=== PATIENT | female | born 1960 | race Caucasian/White ===

== ENCOUNTER → 2017-08-23 | Outpatient (CLI) | payer OTHER ==
[2017-08-23 09:38] LABS: ALT 42 U/L (9-52); AST 30 U/L (14-36); Alkaline Phosphatase 73 U/L (38-126); Anion Gap 10 mmol/L; Blood Urea Nitrogen 14 mg/dL (7-17); Calcium 9.9 mg/dL (8.4-10.2); Carbon Dioxide 28 mmol/L (22-30); Chloride 105 mmol/L (98-107); Cholesterol 213 mg/dL (<200); Glucose 100 mg/dL (74-99); HDL Cholesterol 60 mg/dL (40-60); Non-African American GFR(MDRD) >60 (>60 ml/min/1.73 sqM); Potassium 4.8 mmol/L (3.5-5.1); Sodium 143 mmol/L (137-145); Total Bilirubin 0.6 mg/dL (0.2-1.3); Total Protein 7.6 g/dL (6.3-8.2)
[2017-08-23 09:45] LABS: Basophils # (A) 0.1 k/uL (0-0.2); Basophils % (A) 2 %; CH 30.5; Eosinophils # (A) 0.5 k/uL (0-0.7); Eosinophils % (A) 9 %; HCT 44.1 % (34.0-46.0); HDW 2.44; HGB 14.4 gm/dL (11.4-16.0); Luc # (Auto) 0.18; Luc % (Auto) 3; Lymphocytes # (A) 1.7 k/uL (1.0-4.8); Lymphocytes % (A) 30 %; MCH 30.2 pg (25.0-35.0); MCHC 32.5 g/dL (31.0-37.0); MCV 92.9 fL (80.0-100.0); Mean Platelet Volume 6.6; Monocytes # (A) 0.4 k/uL (0-1.0); Monocytes % (A) 7 %; Neutrophils # (A) 2.8 k/uL (1.3-7.7); Neutrophils % (A) 50 %; RBC 4.75 m/uL (3.80-5.40); RDW 12.4 % (11.5-15.5); WBC 5.6 k/uL (3.8-10.6); WBC (Perox) 5.69
== END | disposition home or self-care (01) ==
LOC: LABWHC1 08:47
PROVIDERS: ATTEND Internal Medicine
DX: I10 Essential (primary) hypertension (principal); R53.81 Other malaise
CPT/HCPCS: 36415; 80053; 80061; 82306; 84439; 84443; 85025

== ENCOUNTER → 2018-11-22 | Outpatient (CLI) | payer BC ==
--- NOTE | 2018-11-23 08:47 | BD ---
EXAMINATION TYPE: Axial Bone Density DATE OF EXAM: 11/22/2018 COMPARISON: NONE CLINICAL HISTORY: 58 YR OLD FEMALE....ICD-10 CODE: Z13.820 OSTEOPOROSIS SCREENING Height: 60 Weight: 194 FRAX RISK QUESTIONS: Current Tobacco Use: YES, SOCIAL RISK FACTORS HISTORY OF: Family History of Osteoporosis: YES, HER MOTHER...NO HIP FX Postmenopausal woman: YES, AT 46 YRS OLD Lost more than 2 inches in height since high school: NOT QUITE MEDICATIONS: Additional Medications: LISINOPRIL, NSAIDS, CALCIUM AND VIT D Additional History: NOTHING ADDITIONAL TO NOTE HERE EXAM MEASUREMENTS: Bone mineral densitometry was performed using the [employer]. Bone mineral density as measured about the Lumbar spine is: ----- L1-L4(G/cm2): 1.275 T Score Values are as follows: ----- L1: 0.0 ----- L2: 0.1 ----- L3: 0.7 ----- L4: 2.3 ----- L1-L4: 0.1 Bone mineral density FIRST DEXA SCAN.....BASELINE STUDY Bone mineral density about the R hip (g/cm2): 1.028 Bone mineral density about the L hip (g/cm2): 0.965 T Score values are as follows: -----R Neck: -1.0 -----L Neck: -1.5 -----R Total: 0.2 -----L Total: -0.3 Bone mineral density BASELINE STUDY FRAX%s: THERE IS A 7.0% CHANCE FOR A MAJOR OSTEOPOROTIC FX AND A 0.9% FOR HIP.....PROBABILITY OF F X IN 10 YRS TIME IMPRESSION: Osteopenia (T Score between -2.5 and -1) with regards to the left femoral neck. There is slightly increased risk of fracture and the patient may be considered for treatment. Re-Screen 2-5 years. NOTE: T-SCORE=SD OF THE YOUNG ADULT MEAN.
--- NOTE | 2018-11-23 09:16 | MM ---
Reason for exam: screening (asymptomatic). Last mammogram was performed 2 years and 9 months ago. History: Patient is postmenopausal. Family history of breast cancer in aunt. Benign stereotactic core biopsy of the left breast, January 21, 2002. Core biopsy of the left breast. Physical Findings: A clinical breast exam by your physician is recommended on an annual basis and results should be correlated with mammographic findings. MG 3D Screening Mammo W/Cad Bilateral CC and MLO view(s) were taken. Prior study comparison: February 05, 2016, bilateral MG screening mammo w CAD. February 05, 2014, [facility] DIGITAL RIGHT MAMMOGRAM w/CAD. There are scattered fibroglandular densities. Benign right calcifications. No suspicious abnormality. Left biopsy marker noted. ASSESSMENT: Benign, BI-RAD 2 RECOMMENDATION: Routine screening mammogram of both breasts in 1 year.
== END | disposition home or self-care (01) ==
LOC: RADMAMWWP 15:27
PROVIDERS: ATTEND Family Medicine
DX: Z12.31 Encounter for screening mammogram for malignant neoplasm of breast (principal); M85.852 Other specified disorders of bone density and structure, left thigh; Z13.820 Encounter for screening for osteoporosis
CPT/HCPCS: 77063; 77067; 77080

== ENCOUNTER → 2020-03-31 | Outpatient (CLI) | payer BC ==
--- NOTE | 2020-04-01 04:32 | CT ---
EXAMINATION TYPE: CT sinus wo con DATE OF EXAM: 03/31/2020 COMPARISON: None HISTORY: 60-year-old female chronic sinus infections CT DLP: 536 mGycm Automated exposure control for dose reduction was used. TECHNIQUE: Noncontrast axial views of the paranasal sinuses were obtained. Coronal reconstructions pe rformed. FINDINGS: PARANASAL SINUSES: Near complete opacification of the right frontal sinus with trace layering fluid within. Scattered trace mucosal thickening left maxillary sinus and right sphenoid sinus. Moderate mucosal thickening bilateral ethmoid air cells, regarding the left and moderate mucosal thic kening right frontal sinus. Reactive ellie- osteogenesis is not seen. There is no destruction of the osseous orozco of the paranasal sinuses. THE NASAL CAVITY: There is a calcification which extends to encompass the right maxillary antrum and osteomeatal comple x. Left osteomeatal complex is patent. No significant nasal septal deviation. Majority of the mastoid air cells and middle ear cavities are excluded from view. Visualized orbits a nd globes show no gross abnormality. Reformatted images confirm above findings. IMPRESSION: Asymmetric right-sided paranasal sinus disease with near complete opacification of the right maxillar y sinus and tiny air-fluid level. Correlate for acute on chronic sinusitis. Consider partial obstruct ion of the right osteomeatal complex.
== END | disposition home or self-care (01) ==
LOC: RADCTMAIN 17:16
PROVIDERS: ATTEND Otolaryngology
DX: J34.89 Other specified disorders of nose and nasal sinuses (principal); J32.9 Chronic sinusitis, unspecified
CPT/HCPCS: 70486

== ENCOUNTER 2020-04-07 15:25 | Day surgery (SDC) | payer BC ==
[~2020-04-07 15:25] MED LIST: OXYMETAZOLINE 0.05% NASL SPRAY 1 SPRAY BOTTLE ONE
[2020-04-07] MEDS ORDERED: LACTATED RINGERS 1,000 ML IV SCH (15:30)
[2020-04-07] MEDS ORDERED: fentaNYL (PF) 50 MCG/ML 2 ML AMP IVP PRN (15:30)
[2020-04-07] MEDS: OXYMETAZOLINE 0.05% NASL SPRAY 1 SPRAY BOTTLE NASAL ONE ×5 (15:35→15:55)
[2020-04-07] MEDS ORDERED: LACTATED RINGERS 1,000 ML IV ONE ×2 (15:39→18:14)
[2020-04-07] MEDS ORDERED: MIDAZOLAM 2 MG/2 ML VIAL IVP ONE (16:15)
[2020-04-07 16:18] LABS: Basophils # (A) 0.1 k/uL (0-0.2); Basophils % (A) 1 %; Eosinophils # (A) 0.3 k/uL (0-0.7); Eosinophils % (A) 4 %; HCT 44.3 % (34.0-46.0); HGB 14.7 gm/dL (11.4-16.0); Lymphocytes # (A) 2.4 k/uL (1.0-4.8); Lymphocytes % (A) 33 %; MCH 29.7 pg (25.0-35.0); MCHC 33.1 g/dL (31.0-37.0); MCV 89.5 fL (80.0-100.0); Monocytes # (A) 0.4 k/uL (0-1.0); Monocytes % (A) 5 %; Neutrophils % (A) 55 %; Platelet Count 436 k/uL (150-450); RBC 4.95 m/uL (3.80-5.40); RDW 12.7 % (11.5-15.5); WBC 7.3 k/uL (3.8-10.6)
[2020-04-07] MEDS ORDERED: GLYCOPYRROLATE 0.2 MG/ML 2 ML VIAL ONE (17:23)
[2020-04-07] MEDS ORDERED: MIDAZOLAM 2 MG/2 ML VIAL ONE (17:23)
[2020-04-07] MEDS ORDERED: fentaNYL (PF) 50 MCG/ML 2 ML AMP ONE (17:23)
[2020-04-07] MEDS ORDERED: ROCURONIUM BROMIDE 10 MG/ML 5 ML VIAL IV ONE (17:23)
[2020-04-07] MEDS ORDERED: PROPOFOL 10 MG/ML 20 ML VIAL IV ONE (17:23)
[2020-04-07] MEDS ORDERED: NEOSTIGMINE 1 MG/ML 10 ML VIAL ONE (17:23)
[2020-04-07] MEDS ORDERED: BACITRACIN 500 UNIT/GM OINT 28.4 GM TUBE TOPICAL ONE (18:10)
[2020-04-07] MEDS ORDERED: LIDOCAINE 1%-EPI 1:100,000 20 ML VIAL SQ ONE (18:11)
[2020-04-07] MEDS ORDERED: FLUORESCEIN STRIPS 1 MG STRIP MISCELLANE ONE (18:12)
[2020-04-07] MEDS ORDERED: EPINEPHrine 1 MG/ML (MDV) 30 ML VIAL TOPICAL ONE (18:12)
[2020-04-07] MEDS ORDERED: BUPIVACAIN-EPI 0.25%-1:200,000 30 ML VIAL SQ ONE (18:13)
[2020-04-07] MEDS: fentaNYL (PF) 50 MCG/ML 2 ML AMP IV PRN ×2 (19:33→19:45)
--- NOTE | 2020-04-07 19:52 | P.OP ---
Date of Procedure: 04/07/20 Preoperative Diagnosis: Chronic pansinusitis with bony erosion and polyposis Deviated nasal septum Hypertrophy of inferior nasal turbinates, bilateral Postoperative Diagnosis: Same Procedure(s) Performed: Septoplasty Bilateral functional endoscopic sinus surgery with removal of diseased tissue Bilateral submucosal resection of the inferior nasal turbinates with outfracturing compression Anesthesia: BRYAN Surgeon: Pramod Henderson Estimated Blood Loss (ml): 10 Pathology: other (Sinonasal) Condition: stable Disposition: PACU Indications for Procedure: This patient presented to the office today with a long-standing history of chronic sinus disease. Patient had a CAT scan performed demonstrating chronic pansinusitis but there is some polypoid-type material was some bony erosion of the right side sinuses. Patient had severe sinus disease on the right and more moderate disease on the left. Clearly there were some type of polypoid disease and a very severe process on the right side. ALLERGIC fungal sinusitis and her sinonasal polyposis with suspect. The patient complains of persistent facial pain especially on the right side and has failed medical therapy including many months and years of repetitive antibiotics cortisone nasal sprays decongestants and igcg-fgu-alaxnxt medications. She's lost her sense of smell. Her headaches continue quite bad. She is quite frustrated and with the evidence of her chronic pansinusitis and sinonasal polyposis and severe disease endoscopic sinus surgery, septoplasty and turbinate surgery was recommended. All risks, benefits, and alternative therapies were discussed. Risks of bleeding, infection, need for secondary surgery, etc. etc. were explained including risks of penetration into the orbit and skull base. Consent was obtained and all questions were answered. Operative Findings: Patient was found have massive sinonasal disease especially on the right side with polypoid-type material and erosion of the medial nasal wall with a deviated nasal septum to the left and some very impressively enlarged and obstructive inferior turbinates. Diseased tissue was found throughout all sinuses. The right side was particularly involved. Description of Procedure: This patient was taken to the operative room and placed in the supine position. A general inhalation anesthetic was administered to the patient by the department of anesthesia with a functioning IV line in place. The patient was monitored throughout the entire case by the department of anesthesia. The eyes were taped shut for protection. The patient was placed in a slight reverse Trendelenburg position. The patient had previously utilize Afrin nasal spray preoperatively. The nose was evaluated and the septum lateral nasal wall and inferior turbinates were injected with lidocaine 1% with epinephrine 1 100,000 bilaterally. Approximately 10 minutes were allowed wait for full vasoconstrictive effects to take place. At this point a caudal incision was made over the caudal portion of the left septum down to the mucoperichondrium. A mucoperichondrial flap was elevated on the left side and dissection was carried with use of tunnels posteriorly. We then made a crossover incision through the cartilage to the contralateral side and for the mucoperichondrial flap development was performed to the extent of visualization on the contralateral side. After the cartilage was freed with use of several crosshatching incisions and removal of some redundant strips of septal cartilage, the septum was straightened and placed back in the midline. The septum was sutured fixated to the ovarian groove. Excellent straightening occurred and the septum was visibly straight. Incision was closed with a 40 rapid Vicryl. We utilized a running nonlocking fashion for closure of the incision. A quilting stitch was used to reapproximate the septal flaps with use of a 40 rapid Vicryl. We then entered the nose with a 0 and 30 Dunn alec endoscope. Previous to this we did inject the lateral nasal wall and middle turbinate and uncinate process with lidocaine 1% with epinephrine 1 100,000. Approximately 10 minutes were allowed wait for full vasoconstrictive effects to take place. Intranasal polyps were noted. They were noted bilaterally. The intranasal polyps were removed with use of a microdebrider. With use of a microdebrider and a pediatric backbiter, we took down the uncinate process bilaterally. We then opened the maxillary sinuses bilaterally. We utilized a microdebrider for this and entered the maxillary sinuses and removed diseased tissue and polypoid tissue. This was done bilaterally. After the maxillary sinuses were opened and the diseased tissue and polyps were removed we entered the ethmoid bulla and with use of a microdebrider and up-biting José Miguel, we remove the anterior septations and remove diseased tissue from the anterior ethmoids with direct visualization. We then followed the fovea frontalis through the basal lamella and into the posterior ethmoid air cells and did a total ethmoidectomy with removal of polypoid material. Once the ethmoids cells were all taken down we then entered the sphenoid sinus medially and inferiorly underneath the inferior attachment of the superior turbinate. The sphenoid sinus was opened entered and diseased tissue and polyps were removed bilaterally. This was done with a microdebrider and Blakesley. We then entered the frontal sinuses with a giraffe and up-biting Blakesley entered on the agar nasi cells. We open the frontal sinuses and removed sinus tissue and polypoid tissue that was diseased. We explored the frontal sinuses bilaterally. To summarize all sinuses were open all sinuses were explored and we remove diseased tissue and polyps from the sphenoid maxillary and frontal sinuses. Polyps were removed from the nose. Ethmoid sinuses were opened totally. Nasal pore was inserted and minimal bleeding was encountered. We reinspected the skull base there is no signs of any orbital penetration or signs of any intracranial penetration. The sugical site was reinspected after the nasal pore was placed and no bleeding was seen. Attention was then paid to the inferior turbinates. The bilateral inferior turbinates were hypertrophic and obstructive. We entered the anterior portion of the inferior turbinates with use of a microdebrider. We remove bone and submucosal elements with use of a microdebrider bilaterally. The inferior turbinates underwent a submucosal resection with removal of submucosal tissue and bone. We obtained a much better and normal in size for breathing. The inferior turbinates were then outfractured and compressed with a Zymetises nasal elevator. Excellent airway was obtained and was symmetric bilaterally. No bleeding was encountered. Nasal packs were placed and she is to remove these tomorrow. They're Merocel sponge packs placed in a gloved finger with K-Y jelly insertion. Patient is to remove these packs herself tomorrow morning and I'll see her back in the office on Monday. She is to call me if any problems should arise. I left my cell phone number.
[2020-04-07] MEDS ORDERED: HYDROmorphone 1 MG/ML 1 ML SYRINGE IVP ONE (20:00)
[2020-04-07 22:09] VITALS: TEMP 97.6
[2020-04-07 23:40] VITALS: RESP 16
[2020-04-07 23:42] VITALS: BP 132/87; PULSE 98
[2020-04-08] MEDS ORDERED: ONDANSETRON 4 MG/2 ML VIAL IVP ONE (05:00)
[2020-04-08] MEDS ORDERED: FAMOTIDINE 20 MG/2 ML VIAL IV ONE (05:00)
[2020-04-08] MEDS ORDERED: DEXAMETHASONE SOD PHOSPHATE 4 MG/ML 1 ML VIAL IV ONE (05:00)
[2020-04-08] MEDS ORDERED: LEVOFLOXACIN 500 MG PO SCH (09:00)
[2020-04-08] MEDS ORDERED: LISINOPRIL HCTZ PO SCH (09:00)
== END 2020-04-07 23:20 | disposition home or self-care (01) ==
LOC: OR 15:25 → 5NMEDONC 18:56 → OR 23:20
PROVIDERS: ATTEND Otolaryngology
DX: J32.4 Chronic pansinusitis (principal); M85.88 Other specified disorders of bone density and structure, other site; J34.2 Deviated nasal septum; J34.3 Hypertrophy of nasal turbinates; Z91.048 Other nonmedicinal substance allergy status; R43.0 Anosmia; M19.90 Unspecified osteoarthritis, unspecified site; E78.00 Pure hypercholesterolemia, unspecified; I10 Essential (primary) hypertension; Z82.49 Family history of ischemic heart disease and other diseases of the circulatory system; Z82.61 Family history of arthritis; Z87.891 Personal history of nicotine dependence; Z79.890 Hormone replacement therapy; Z79.899 Other long term (current) drug therapy
CPT/HCPCS: 85025; 30520; 31267; 31259; 31253; 30140; J0171; J2250; J1100; J2710; J2405; J3010; J1170; J2704; 88300; 88305

== ENCOUNTER → 2022-10-25 | Outpatient (CLI) | payer BC ==
--- NOTE | 2022-10-25 18:24 | BD ---
EXAMINATION TYPE: Axial Bone Density DATE OF EXAM: 10/25/2022 COMPARISON: PATIENT HAD BONE DENSITY 11/22/2018, UNABLE TO COMPARE TO TODAY'S EXAM, NOT AVAILABLE ON [email or web address] CLINICAL HISTORY: 62 years year old Female. ICD-10 CODE: Z78.0 MENOPAUSE Height: 60" Weight: 186.5 FRAX RISK QUESTIONS: Alcohol (3 or more units per day): NO Family History (Parent hip fracture): NO Glucocorticoids (More than 3mos): NO (Ex: prednisone, prednisolone, methylprednisolone, dexamethasone, and hydrocortisone). History of Fracture in Adulthood: NO Secondary Osteoporosis: 1. Type 1 Diabetes: NO 2. Hyperthyroidism: NO 3. Menopause before 45: NO 4. Malnutrition: NO 5. Chronic liver disease: NO Rheumatoid Arthritis: NO Current Tobacco Use: NO RISK FACTORS HISTORY OF: Hip Fracture (Right/Left): NO Spine Fracture: NO History of Wrist Fracture: NO Surgery to Spine/Hip(right/left)/Wrist (right/left): NO Family History of Osteoporosis: YES, SISTER Active: SOMEWHAT Diet low in dairy products/other sources of calcium: NO Postmenopausal woman: YES Lost more than 2 inches in height since high school: NO Frequent falls: NO Poor Health: NO Hyperparathyroidism: NO Adrenal Insufficiency: NO MEDICATIONS: Prednisone or other steroids: NO Thyroid Medications: NO Osteoporosis Medications: NO Additional Medications: BLOOD PRESSURE MEDS, VITAMIN D, VITAMIN K, MULTIVITAMIN, TUMS ON OCCASION Additional History: NONE EXAM MEASUREMENTS: Bone mineral densitometry was performed using the [employer] System. Bone mineral density as measured about the Lumbar spine is: ----- L1-L4(G/cm2): 1.335 T Score Values are as follows: ----- L1: -0.1 ----- L2: 0.0 ----- L3: 1.9 ----- L4: 3.1 ----- L1-L4: 1.3 PATIENT HAD BONE DENSITY 11/22/2018, UNABLE TO COMPARE TO TODAY'S EXAM, NOT AVAILABLE ON SOFTWARE Bone mineral density about the R hip (g/cm2): 0.865 Bone mineral density about the L hip (g/cm2): 0.830 T Score values are as follows: -----R Neck: -1.2 -----L Neck: -1.5 -----R Total: 0.1 -----L Total: -0.2 PATIENT HAD BONE DENSITY 11/22/2018, UNABLE TO COMPARE TO TODAY'S EXAM, NOT AVAILABLE ON SOFTWARE FRAX%s: The graph provided illustrates a 7.9% chance for a major osteoporotic fx and a 0.7% chance fo r the hips probability for fx in 10 years time. IMPRESSION: Osteopenia (T Score between -2.5 and -1). There is slightly increased risk of fracture and the patient may be considered for treatment. Re-Screen 2-5 years. NOTE: T-SCORE=SD OF THE YOUNG ADULT MEAN.
--- NOTE | 2022-10-26 22:00 | MM ---
Reason for Exam: Screening (asymptomatic). Last mammogram was performed 3 year(s) and 11 month(s) ago. Patient History: Menarche at age 11. First Full-Term at age 21. Postmenopausal. Patient has history of breast feeding. Core Biopsy on the Left side. 01/21/2002, Benign Stereotactic Core Biopsy on the left side. Paternal aunt had breast cancer. Risk Values: Karime 5 year model risk: 2.3%. NCI Lifetime model risk: 10.0%. Prior Study Comparison: 02/05/2014 Right Diagnostic Mammogram, [facility]. 02/05/2016 Bilateral Screening Mammogram, [facility]. 11/22/2018 Bilateral Screening Mammogram, [facility]. Tissue Density: The breast tissue is almost entirely fat. Findings: Analyzed By CAD. There is no suspicious group of microcalcifications or new suspicious mass in either breast. Microclip left breast from prior biopsy. Overall Assessment: Negative, BI-RAD 1 Management: Screening Mammogram of both breasts in 1 year. 1. Patient should continue monthly self breast exams. 2. A clinical breast exam by your physician is recommended on an annual basis. 3. This exam should not preclude additional follow-up of suspicious palpable abnormalities. Electronically signed and approved by: Emanuel Lynne M.D. Radiologist
== END | disposition home or self-care (01) ==
LOC: RADMAMWWP 15:50
PROVIDERS: ATTEND Family Medicine
DX: Z12.31 Encounter for screening mammogram for malignant neoplasm of breast (principal); M85.89 Other specified disorders of bone density and structure, multiple sites; Z78.0 Asymptomatic menopausal state; Z80.3 Family history of malignant neoplasm of breast; Z98.890 Other specified postprocedural states
CPT/HCPCS: 77063; 77067; 77080

== ENCOUNTER → 2024-01-05 | Outpatient (CLI) | payer BC ==
--- NOTE | 2024-01-08 09:09 | MM ---
Reason for Exam: Screening (asymptomatic). Last mammogram was performed 1 year(s) and 2 month(s) ago. Patient History: Menarche at age 11. First Full-Term at age 21. Postmenopausal. Patient has history of breast feeding. Core Biopsy on the Left side. 01/21/2002, Benign Stereotactic Core Biopsy on the left side. Paternal aunt had breast cancer. Risk Values: Karime 5 year model risk: 2.3%. NCI Lifetime model risk: 9.7%. Prior Study Comparison: 02/05/2016 Bilateral Screening Mammogram, [facility]. 11/22/2018 Bilateral Screening Mammogram, [facility]. 10/25/2022 Bilateral MG 3D screening mammo w/cad, [facility]. Tissue Density: The breasts are almost entirely fatty. Findings: Analyzed By CAD. The pattern is symmetrical. Core markers within the left breast. Benign spherical calcifications are within right breast. Scattered benign punctate calcifications are present bilaterally. No suspicious groups of microcalcifications, spiculated or lobular masses, architectural distortion or other secondary signs of malignancy are mammographically apparent. Overall Assessment: Benign, BI-RAD 2 Management: Screening Mammogram of both breasts in 1 year. A negative mammogram report should not preclude additional follow up of suspicious palpable abnormalities. Patient should continue monthly self breast exam. A clinical breast exam by your physician is recommended on an annual basis and results should be correlated with mammographic findings. Electronically signed and approved by: Brannon Lira D.O. Radiologis
== END | disposition home or self-care (01) ==
LOC: RADMAMWWP 12:49
PROVIDERS: ATTEND Family Medicine
DX: Z12.31 Encounter for screening mammogram for malignant neoplasm of breast (principal); Z80.3 Family history of malignant neoplasm of breast; Z78.0 Asymptomatic menopausal state
CPT/HCPCS: 77063; 77067

== ENCOUNTER → 2024-01-05 | Outpatient (CLI) | payer BC ==
[2024-01-06 01:39] LABS: Basophils # (A) 0.04 X 10*3/uL (0.00-0.10); Basophils % (A) 0.8 %; Eosinophils # (A) 0.15 X 10*3/uL (0.04-0.35); Eosinophils % (A) 3.1 %; HGB 15.2 g/dL (12.0-15.0); Lymphocytes # (A) 2.02 X 10*3/uL (0.90-5.00); Lymphocytes % (A) 41.6 %; MCH 30.2 pg (27.0-32.0); MCV 91.5 FL (80.0-97.0); Mean Platelet Volume 9.7 FL (9.5-12.2); Monocytes # (A) 0.53 X 10*3/uL (0.20-1.00); Monocytes % (A) 10.9 %; NRBC Per 100 WBC 0 X 10*3/uL (0.00-0.01); Neutrophils # (A) 2.11 X 10*3/uL (1.80-7.70); Neutrophils % (A) 43.4 %; Platelet Count 329 X 10*3/uL (140-440); RBC 5.03 X 10*6/uL (4.10-5.20); RDW 12.2 % (11.5-14.5); WBC 4.86 X 10*3/uL (4.50-10.00)
[2024-01-06 02:00] LABS: Erythrocyte Sedimentation Rate 25 mm/Hr (0-30)
[2024-01-06 02:11] LABS: Rheumatoid Factor, Qnt <15 IU/mL (0-15); Uric Acid 4.5 mg/dL (2.9-7.7)
[2024-01-06 14:32] LABS: HLA B27 POSITIVE
== END | disposition home or self-care (01) ==
LOC: LABWHC1 14:59
PROVIDERS: ATTEND Family Medicine
DX: M25.50 Pain in unspecified joint (principal)
CPT/HCPCS: 36415; 84550; 85025; 85652; 86038; 86140; 86431; 86812

== ENCOUNTER → 2024-04-04 | Outpatient (CLI) | payer BC ==
--- NOTE | 2024-04-05 01:30 | MR ---
EXAMINATION TYPE: MR cspine/lspine wo con DATE OF EXAM: 04/04/2024 COMPARISON: Outside lumbar spine x-ray March 20, 2024. HISTORY: Neck stiff, pain with limited range of motion for many years/ Achy Lower back with pain dana els down left leg progressing getting worse with age. Spondylosis without myelopathy. TECHNIQUE: Multiplanar, multisequence imaging of the cervical and lumbar spine are performed without IV contrast. FINDINGS: C-SPINE: Sagittal images of the cervical spine show the craniocervical junction to appear within normal limits . The cervical and upper thoracic spinal cord is normal in course, caliber, and signal. Persistent s light grade 1 anterolisthesis C3 on C4 and slight grade 1 retrolisthesis C6 on C7. The vertebral bod y heights are normal. Multilevel disc space narrowing and spurring most prominent at C4-C5 through C6 -C7 levels. The bone marrow signal intensity is within normal limits. Mild mucosal thickening in the sphenoid sinus incidentally noted. Axial images show C2-C3 level to appear within normal limits. Axial images at C3-C4 levels show slight spondylolisthesis and mild lobulated posterior disc protrusi on with uncovertebral facet degenerative change causing minimal effacement of the anterior thecal sac and asymmetric moderate left-sided neural foraminal narrowing. Axial images at C4-C5 level show moderate sized broad based posterior disc protrusion effaces the ant erior thecal sac and causing mild to moderate left-sided neural foraminal narrowing. Axial images at C5-C6 level shows broad-based posterior disc protrusion effacing the anterior thecal sac and causing moderate left-sided neural foraminal narrowing. Axial images at C6-C7 level shows broad-based right paracentral disc protrusion effacing the anterior thecal sac and causing mild left-sided neural foraminal narrowing. Axial images at C7-T1 level appear within normal limits. IMPRESSION: Multilevel spondylolisthesis and degenerative change in the cervical spine as detailed ab ove. L-SPINE: Sagittal images of the lumbar spine show vertebral body heights to appear satisfactory. There is grad e 1 anterolisthesis of L4 on L5. Multilevel disc desiccation and mild to moderate disc space narrowin g with relative sparing of L5-S1 level. Incidental space narrowing with Modic type II endplate change s and moderate anterior spurring at T11-T12 level with posterior disc herniation effaces anterior the sadie sac. The conus medullaris is normal in position and signal ending at mid L1 level. Incidental 5 mm Tarlov cyst at superior S2 level sagittal image 9. The bone marrow signal intensity is within nor mal limits in the lumbar spine. Axial images show T12-L1 level to appear within normal limits. Axial images at L1-L2 and L2-L3 levels show mild broad disc bulge minimally effaces the anterior thec al sac. Mild facet arthropathy bilaterally. The bilateral neural foramina are patent. Axial images at L3-L4 level shows mild broad-based disc bulge mildly effacing the anterior thecal sac . There is mild/moderate facet arthropathy and ligamentum flavum hypertrophy slightly effacing the bi lateral posterolateral thecal sac. There is mild bilateral anterior inferior neural foraminal narrowi ng. Axial images at L4-L5 levels with spondylolisthesis with moderate to advanced facet arthropathy and l igamentum flavum hypertrophy effacing the right lateral thecal sac. There is [id number] left si ded neural foraminal narrowing. Right-sided neural foramen is patent. Broad disc bulge is noted. Axial images at L5-S1 level show [id number] facet arthropathy bilaterally. Spinal canal is pres erved. Paraspinal muscle bulk is maintained. IMPRESSION: Spondylolisthesis at L4-L5 level. Multilevel degenerative changes are present as detailed above.
== END | disposition home or self-care (01) ==
LOC: RADMRIMAIN 20:45
PROVIDERS: ATTEND Orthopaedic Surgery
DX: M43.19 Spondylolisthesis, multiple sites in spine (principal); M47.817 Spondylosis without myelopathy or radiculopathy, lumbosacral region; M51.36 Other intervertebral disc degeneration, lumbar region; M51.24 Other intervertebral disc displacement, thoracic region
CPT/HCPCS: 72141; 72148